=== PATIENT | male | born 1945 | race Caucasian/White ===

== ENCOUNTER → 2016-04-04 | Outpatient (CLI) | payer OTHER ==
[~2016-04-04] MED LIST: ACID CONTROL20 MG PER TUBE; ACID CONTROL20 MG PO; ASPIR-TRIN325 MG PO; AUGMENTIN400 MG/53 PER TUBE; CATAPRESS3 TRANSDERM; CEPACOL SORE T1 EAC7 PO; CEPACOL SORE T1 EAC8 PO; CLONIDINE HCL0.3 M3 PAD; CLONIDINE0.1 PER TUBE; DUONEB 2.5-0.5 M3 ML INH; ENOXAPARIN40 MG/0.1 SUBQ; K-SOL20 MEQ/15 PER TUBE; LISINOPRIL20 MG PER TUBE; LOPRESSOR100 M1 PER TUBE; LOTRISONE CREAM15 GM TOP; MAG DELAY64 MG PER TUBE; SEROQUEL 50 MG50 MG PER TUBE; TEARS NATURALE1 EACH OPHTHALMIC; TYLENOL325 MG PER TUBE; VALPROIC A250 MG/51 PER TUBE; VITAMIN B-1100 M1 PER TUBE
== END ==
LOC: CAT 09:05
DX: I70.0 Atherosclerosis of aorta (principal); I77.2 Rupture of artery

== ENCOUNTER → 2018-09-02 | Outpatient (CLI) | payer OTHER ==
[2018-09-02 10:19] LABS: CALCIUM 8.8 mg/dL (8.5-10.1); CREATININE 0.9 mg/dL (0.7-1.3)
== END ==
LOC: CAT 09:29
DX: Z01.812 Encounter for preprocedural laboratory examination (principal); I71.2 Thoracic aortic aneurysm, without rupture; I25.10 Atherosclerotic heart disease of native coronary artery without angina pectoris; N28.1 Cyst of kidney, acquired; K82.8 Other specified diseases of gallbladder; M47.814 Spondylosis without myelopathy or radiculopathy, thoracic region; Z95.0 Presence of cardiac pacemaker

== ENCOUNTER → 2019-09-08 | Outpatient (CLI) | payer OTHER | LOC: SJCVCIMAG 09:11 | PROVIDERS: ATTEND Internal Medicine | DX: I08.0 Rheumatic disorders of both mitral and aortic valves (principal); R94.31 Abnormal electrocardiogram [ECG] [EKG]; I11.9 Hypertensive heart disease without heart failure; I25.10 Atherosclerotic heart disease of native coronary artery without angina pectoris; E78.5 Hyperlipidemia, unspecified; I70.0 Atherosclerosis of aorta; I48.0 Paroxysmal atrial fibrillation; Z95.0 Presence of cardiac pacemaker; Z79.01 Long term (current) use of anticoagulants; Z79.899 Other long term (current) drug therapy ==

== ENCOUNTER → 2019-09-20 | Outpatient (CLI) | payer OTHER ==
[2019-09-20 09:41] LABS: CREATININE 0.9 mg/dL (0.7-1.3)
== END ==
LOC: CAT 08:37
PROVIDERS: ATTEND Internal Medicine
DX: I71.4 Abdominal aortic aneurysm, without rupture (principal); I25.10 Atherosclerotic heart disease of native coronary artery without angina pectoris; I73.9 Peripheral vascular disease, unspecified; M47.814 Spondylosis without myelopathy or radiculopathy, thoracic region

== ENCOUNTER → 2020-03-14 | Outpatient (CLI) | payer OTHER | LOC: SJCVC 10:09 | PROVIDERS: ATTEND Internal Medicine | DX: R94.31 Abnormal electrocardiogram [ECG] [EKG] (principal); I71.9 Aortic aneurysm of unspecified site, without rupture; I25.10 Atherosclerotic heart disease of native coronary artery without angina pectoris; I48.0 Paroxysmal atrial fibrillation; I10 Essential (primary) hypertension; E78.5 Hyperlipidemia, unspecified; Z79.01 Long term (current) use of anticoagulants; Z95.0 Presence of cardiac pacemaker; Z79.899 Other long term (current) drug therapy ==

== ENCOUNTER → 2020-09-13 | Outpatient (CLI) | payer OTHER | LOC: SJCVC 10:56 | PROVIDERS: ATTEND Internal Medicine | DX: R94.31 Abnormal electrocardiogram [ECG] [EKG] (principal); I49.3 Ventricular premature depolarization; I25.10 Atherosclerotic heart disease of native coronary artery without angina pectoris; I71.9 Aortic aneurysm of unspecified site, without rupture; I48.0 Paroxysmal atrial fibrillation; I10 Essential (primary) hypertension; E78.5 Hyperlipidemia, unspecified; J18.9 Pneumonia, unspecified organism; Z79.01 Long term (current) use of anticoagulants; Z79.899 Other long term (current) drug therapy; Z72.89 Other problems related to lifestyle ==